=== PATIENT | male | born 1945 | race Two or more races ===

== ENCOUNTER → 2016-06-09 | Day surgery (SDC) | payer MEDICARE, MEDICAID ==
--- NOTE | 2016-06-08 10:13 | Pre-Procedure Note/Attestation ---
Pre-Procedure Note/Attestation Complete Prior to Procedure Planned Procedure: right Procedure Narrative: 1. CATARACT EXTRACTION WITH PHACO AND PC IOL IMPLANTATION, RIGHT EYE. 2.MALYUGIN RING INSERTION, RIGHT EYE FOR FLOPPY IRIS SYNDROME. 3.COMPLEX CATARACT , RIGHT EYE Indications for Procedure Pre-Operative Diagnosis: 1. CATARACT ,RIGHT EYE. 2. FLOPPY IRIS SYNDROME, RIGHT EYE 3. COMPLEX CATARACT , RIGHT EYE. Attestation I attest that I discussed the nature of the procedure; its benefits; risks and complications; and alternatives (and the risks and benefits of such alternatives ), prior to the procedure, with the patient (or the patient's legal sales representative facility services). I attest that, if there was a reasonable possibility of needing a blood transfusion, the patient (or the patient's legal sales representative facility services) was given the [facility] standardized written summary, pursuant to the Alex Woodfin Blood Safety Act ([place] Health and Safety Code # 1645, as amended). I attest that I re-evaluated the patient just prior to the surgery and that there has been no change in the patient's H&P, except as documented below: JOSIE JARQUIN Jun 08, 2016 10:13
[2016-06-09] VITALS (9 sets, daily range): BP systolic 137–155; BP diastolic 72–85
[~2016-06-09] VITALS: Ht 188 cm; Wt 81.6 kg
[~2016-06-09] MED LIST: Akten 3.5% 1ml Btl ONE; BSS 15ml BTL ONE; BSS 500ml btl ONE; Dexamethasone 4mg/ml vial ONE; Diclofenac Sod 0.1% Op Soln ONE; DiphenhydrAMINE 50mg/ml Inj IVP PRN; DiphenhydrAMINE 50mg/ml Inj ONE; EPINEPHrine 1mg/1ml Amp ONE; FLUTICASONE PRO16 G1 NASAL; FOLIC ACID1 MG ORAL; GABAPENTIN600 MG ORAL; Gatifloxacin Opth Solution 0.5% ONE; LR 1000ml 1,000 ML IVLG SCH; LR 1000ml ONE; Labetalol 5mg/ml 20ml vial IV PRN; Lidocaine 1% MPF 10mg/ml 5ml ONE; NS Irrig 1000ml ONE; Phenylephrine 10% Opth Soln 5ml ONE; Povidone-Iodine 5% opth solution ONE; Sodium Hyaluronate 10 mg/ml 0.85ml ONE; Sterile Water Irrig 1000ml IRRIG ONE; TAMSULOSIN HCL0.4 MG ORAL; Tropicamide 1% Opth Soln ONE; acetaZOLAMIDE 125mg tab ORAL ONE; fentaNYL 100 mcg/2 mL IV ONE
--- NOTE | 2016-06-09 07:36 | Anethesia Preoperative Eval ---
Anesthesia Pre-op PMH/ROS General Date of Evaluation: Jun 09, 2016 Anesthesiologist: Demetri ASA Score: ASA 3 Mallampati Score Class I : Soft palate, uvula, fauces, pillars visible Class II: Soft palate, uvula, fauces visible Class III: Soft palate, base of uvula visible Class IV: Only hard plate visible Mallampati Classification: Class II Surgeon: Isabelle Diagnosis: Right cataract Surgical Procedure: Right cataract extraction with IOL Anesthesia History: none Family History: no anesthesia problems Allergies: Coded Allergies: No Known Allergies (Unverified , 06/05/16) Medications: see eMAR Past Medical History Cardiovascular: Reports: HTN, Denies: CAD, [place], arrhythmia, other, valve dz Pulmonary: Denies: COPD, CRISTIAN, asthma, other Gastrointestinal/Genitourinary: Reports: GERD, other - BPH, Denies: CRI, ESRD Neurologic/Psychiatric: Reports: depression/anxiety, Denies: CVA, TIA, dementia, other Endocrine: Denies: DM, hypothyroidism, other, steroids HEENT: Denies: [place] (L), [place] (R), cataract (L), cataract (R), glaucoma, other Hematology/Immune: Denies: DVT, anemia, bleeding disorder, other Musculoskeletal/Integumentary: Reports: other - Multiple sclerosis, Denies: DDD, DJD, OA, RA, edema PSxH Narrative: Denies Anesthesia Pre-op Phys. Exam Physician Exam see chart Constitutional: NAD Cardiovascular: RRR Respiratory: CTA Airway Exam Mallampati Score: Class II MO: full ROM: full Anesthesia Pre-op A/P Labs see chart Studies Pre-op Studies: EKG - sr Risk Assessment & Plan Assessment: ASa III Plan: MAC Status Change Before Surgery: No Pre-Antibiotics Drug: N/A JENNIFER RIVAS M.D. Jun 09, 2016 07:36
--- NOTE | 2016-06-09 08:32 | Immediate Post-Op Evaluation ---
Immediate Post-Op Evalulation Immediate Post-Op Evalulation Procedure: Right cataract extraction with IOl Date of Evaluation: Jun 09, 2016 Time of Evaluation: 10:17 IV Fluids: 400 Blood Products: 0 Estimated Blood Loss: 0 Urinary Output: 0 Blood Pressure Systolic: 155 Blood Pressure Diastolic: 85 Pulse Rate: 79 Respiratory Rate: 16 O2 Sat by Pulse Oximetry: 100 Temperature (Fahrenheit): 97.3 Pain Score (1-10): 0 Nausea: No Vomiting: No Complications 0 Patient Status: awake, reacts, patent, none Hydration Status: adequate Drug: N/A JENNIFER RIVAS M.D. Jun 09, 2016 08:32
--- NOTE | 2016-06-09 08:32 | 48 Hour Post Anesthesia Eval ---
Post Anesthesia Evaluation Procedure: Right cataract extraction with IOl Date of Evaluation: Jun 09, 2016 Blood Pressure Systolic: 149 0: 81 Pulse Rate: 78 Respiratory Rate: 16 O2 Sat by Pulse Oximetry: 99 Airway: patent Nausea: No Vomiting: No Pain Intensity: 0 Hydration Status: adequate Cardiopulmonary Status: at baseline Mental Status/LOC: patient returned to baseline Post-Anesthesia Complications: 0 Follow-up care needed: ready to discharge JENNIFER RIVAS M.D. Jun 09, 2016 08:32
[2016-06-09] MEDS: Phenylephrine 10% Opth Soln 5ml RIGHT EYE SCH ×3 (08:53→09:06)
[2016-06-09] MEDS: Tropicamide 1% Opth Soln RIGHT EYE SCH ×3 (08:53→09:05)
[2016-06-09] MEDS: Gatifloxacin Opth Solution 0.5% RIGHT EYE SCH ×3 (08:54→09:06)
[2016-06-09] MEDS: Diclofenac Sod 0.1% Op Soln RIGHT EYE SCH ×3 (08:55→09:06)
[2016-06-09] MEDS: Akten 3.5% 1ml Btl RIGHT EYE SCH ×3 (08:55→09:07)
--- NOTE | 2016-06-09 10:15 | Brief Operative Note ---
Immediate Post Operative Note Operative Note Chief Complaint: blurry visio, right eye, difficulty watching TV and reading Pre-op Diagnosis: 1. CATARACT ,RIGHT EYE. 2. FLOPPY IRIS SYNDROME, RIGHT EYE 3. COMPLEX CATARACT , RIGHT EYE. Procedure: 1- Cataract extraction with phaco and PC IOL implantation, right eye 2- Malyugin ring insertion for treatment floppy iris syndrome 4- Complex cataract extracted Post-op Diagnosis: same as pre-op Surgeon: Josie Walton MD Metal Pickling Equipment Operator: None Additional Surgeons: None Anesthesiologist: Dr. Mosquera Anesthesia: MAC Specimen: none Complications: none Condition: stable Estimated Blood Loss: none Drains: none Implant(s) used?: Yes - Monopfocal PC IOL implanted in the right eye without complication JOSIE WALTON Jun 09, 2016 10:15
--- NOTE | 2016-06-09 15:58 | Discharge Summary ---
DATE OF ADMISSION: 06/09/2016 DATE OF DISCHARGE: 06/09/2016 REASON FOR HOSPITALIZATION: Cataract of the right eye. SURGERY PERFORMED: 1. Cataract extraction with phacoemulsification and posterior chamber intraocular lens implantation in the right eye. 2. Insertion of Malyugin ring for treatment of floppy iris syndrome. CONDITION IN THE HOSPITAL: The patient tolerated the surgery without complications. DISCHARGE CONDITION: The patient was stable at discharge. DISCHARGE MEDICATIONS: 1. Prednisolone 1% q.i.d. in the right eye. 2. Vigamox eyedrops one drop q.i.d. in the right eye. 3. Ilevro eye drops one drop daily in the right eye. POSTOPERATIVE ORDERS: The patient has to rest at home. No bending. No lifting. No watching TV tonight. Postoperative Followup: The patient will be followed in my office tomorrow morning at 06:30 a.m. tomorrow. Westley Walton M.D. DR: ERNESTINA JOB#: [id number] CC:
--- NOTE | 2016-06-09 15:58 | Operative Note - Dictated ---
DATE OF OPERATION: 06/09/2016 FACILITY: [facility] SURGEON: Westley Walton M.D. MENTAL HEALTH SPECIALIST: None. ANESTHESIOLOGIST: Dr. Mosquera. ANESTHESIA: Monitored anesthesia care (MAC). PREOPERATIVE DIAGNOSES: 1. Cataract of the right eye. 2. 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 3. Complex cataract, right eye. POSTOPERATIVE DIAGNOSES: 1. Cataract of the right eye. 2. 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 3. Complex cataract, right eye. SURGERY PERFORMED: 1. Cataract extraction with phacoemulsification and posterior chamber intraocular lens implantation in the right eye. 2. Malyugin ring insertion for treatment of floppy iris syndrome in the right eye. 3. Complex cataract treatment in the right eye. INDICATION FOR SURGERY: The patient is a 70-year-old gentleman with history of multiple sclerosis, paraparesis, bedridden, and is on wheelchair. He is complaining of blurry vision in the right eye. He has a history of diverticular disease of the colon, multiple sclerosis, chronic depression, paraparesis, urinary incontinence, anal fissure, and chronic constipation. He is taking Advair Diskus 250 mcg/50 mcg, dextromethorphan/guaifenesin 10 mg/100 mg syrup, Fleet Enema, fluticasone 50 mcg, folic acid 1 mg, Linzess 290 mcg capsule, tamsulosin 0.5 mg capsule, and Zithromax Z-Bhavin 250 mg. He is a smoker and as I mentioned, he is bedridden. He is complaining of blurred vision in the right eye. Upon examination of the right eye, the cornea is clear. Anterior chamber is clean and quiet. Pupillary reflex is normal. There is no RAPD. Actually, he had surgery of neuritis in both eyes about 20 years ago, but right now, the optic nerves are clear and clean. Upon examination, there is 4+ nuclear sclerosis and 2+ cortical cataract. Funduscopy shows normal macula, normal optic disc, and periphery retina is flat. To improve his vision in the right eye, the cataract has to be removed and posterior chamber intraocular lens has to be implanted. INFORMED CONSENT: The nature of the surgery, risks, benefits, alternatives, and potential complications were explained all in detail to the patient. The potential complications including, but not limited to bleeding, infection, posterior capsular rupture, lens subluxation, flat anterior chamber, iris prolapse, uveitis, corneal edema, macular edema, endophthalmitis, retinal detachment, loss of vision, and loss of the eye were all explained in detail to the patient. The patient voiced understanding and accepted all the complications. The alternatives including accommodating lens, multifocal lens, toric lens, and conventional cataract surgery with limbal relaxing incision for treatment of astigmatism were all explained in detail to the patient in his language, Farsi. The patient voiced understanding all my explanations. Then, the patient decided to have only conventional cataract surgery in the right eye. Then, he signed a consent form, which is in the chart. DESCRIPTION OF SURGERY AND FINDINGS: Following that, the patient was taken to the operation room in a stable condition. Lidocaine gel Akten 3.5% were applied to the conjunctiva of the right eye. IV sedation was given by the anesthesiologist, Dr. Mosquera. After adequate anesthesia and sedation had been achieved, the right eye was prepped and draped in a sterile fashion for intraocular surgery. Following that, a speculum was placed in the right eye. Following that, using a Super Sharp knife, a clear corneal side port was created. Lidocaine 1% without preservative (MPF) was injected into the anterior chamber. Viscoelastic agent Healon was injected into the anterior chamber. Following that, a clear corneal temporal keratotomy was performed with a 2.8 mm keratome. Following that, viscoelastic agent Healon was injected into the anterior chamber again. Following that, a Malyugin ring was injected into the anterior chamber. Following that, the coil of the Malyugin ring was engaged with a sphincter of the pupil. A bill-shaped space was created for safe capsulorrhexis and safe phacoemulsification. Following that, vision blue was injected under the viscoelastic agent to stain the anterior chamber. Under the viscoelastic agent, anterior capsulotomy was performed in the fashion of capsulorrhexis beautifully. Following that, all viscoelastic agent was removed from the anterior chamber. Following that, with balanced salt solution, hydrodissection and hydrodelineation were performed and the nucleus was freed. Following that, a clear fresh viscoelastic agent was injected into the anterior chamber to protect the endothelium of the cornea. Following that, using phacoemulsification machine in the fashion of horizontal chop, the nucleus was removed in toto. Following that, the cortical material was removed from the capsular bag using irrigation aspiration unit. Following that, the capsular bag was polished. Following that, the capsular bag was filled with viscoelastic agent Healon. Following that, a +20 diopter foldable PCIOL [id number] with serial #[id number] was inserted into the capsular bag. Using a Sinskey hook, the lens was manipulated and put in the proper position. Following that, the viscoelastic was removed from the anterior posterior part of the lens and the anterior chamber was filled with balanced salt solution. The wound was hydrated with balanced salt solution. The wound was checked for leakage and there was no leakage. Vigamox eye drops were applied to the conjunctiva of the right eye. The patient tolerated the surgery without complications. At the end of the surgery, the eye was patched with a clear sterile fenestrated shield. Following that, the patient was transferred to the recovery room. In the recovery room, 125 mg Diamox was given by mouth stat. Postoperative orders and directions were given to the patient. The patient will be discharged home upon stabilization. The patient will be followed in my office tomorrow morning at 6:30 a.m. Westley Walton M.D. DR: ERNESTINA JOB#: [id number] CC:
== END | disposition home or self-care (01) ==
LOC: SUR 07:55
DX: H25.11 Age-related nuclear cataract, right eye (principal); H25.011 Cortical age-related cataract, right eye; H21.81 Floppy iris syndrome; G35 Multiple sclerosis; G82.20 Paraplegia, unspecified; R26.2 Difficulty in walking, not elsewhere classified; N31.9 Neuromuscular dysfunction of bladder, unspecified; I10 Essential (primary) hypertension; K21.9 Gastro-esophageal reflux disease without esophagitis; N40.1 Benign prostatic hyperplasia with lower urinary tract symptoms; R33.8 Other retention of urine; F32.9 Major depressive disorder, single episode, unspecified; F41.9 Anxiety disorder, unspecified; K59.00 Constipation, unspecified; K60.2 Anal fissure, unspecified; K57.30 Diverticulosis of large intestine without perforation or abscess without bleeding; F17.210 Nicotine dependence, cigarettes, uncomplicated; J32.9 Chronic sinusitis, unspecified; Z99.3 Dependence on wheelchair
CPT/HCPCS: 66982; J0171; J1100; J1200; J3010; J7120; V2632; 94003; 94150

== ENCOUNTER → 2016-06-23 | Day surgery (SDC) | payer MEDICAID, MEDICARE ==
--- NOTE | 2016-06-19 16:17 | Pre-Procedure Note/Attestation ---
Pre-Procedure Note/Attestation Complete Prior to Procedure Planned Procedure: left Procedure Narrative: 1. CATARACT EXTRACTION WITH PHACO AND PC IOL IMPLANTATION, LEFT EYE. 2.MALYUGIN RING INSERTION, LEFT EYE FOR FLOPPY IRIS SYNDROME. 3.COMPLEX CATARACT , LEFT EYE Indications for Procedure Pre-Operative Diagnosis: 1. CATARACT ,LEFT EYE. 2. FLOPPY IRIS SYNDROME, LEFT EYE 3. COMPLEX CATARACT , LEFT EYE. Attestation I attest that I discussed the nature of the procedure; its benefits; risks and complications; and alternatives (and the risks and benefits of such alternatives ), prior to the procedure, with the patient (or the patient's legal customer retention representative). I attest that, if there was a reasonable possibility of needing a blood transfusion, the patient (or the patient's legal customer retention representative) was given the [facility] standardized written summary, pursuant to the Alex Reza Blood Safety Act ([place] Health and Safety Code # 1645, as amended). I attest that I re-evaluated the patient just prior to the surgery and that there has been no change in the patient's H&P, except as documented below: JOSIE JARQUIN Jun 19, 2016 16:17
[2016-06-23] VITALS (8 sets, daily range): BP systolic 140–164; BP diastolic 78–96
[~2016-06-23] VITALS: Ht 188 cm; Wt 79.4 kg
[~2016-06-23] MED LIST changes: +Akten 3.5% 1ml Btl LEFT EYE SCH; +Diclofenac Sod 0.1% Op Soln LEFT EYE SCH; -DiphenhydrAMINE 50mg/ml Inj IVP PRN; -DiphenhydrAMINE 50mg/ml Inj ONE; +Gatifloxacin Opth Solution 0.5% LEFT EYE SCH; +Phenylephrine 10% Opth Soln 5ml LEFT EYE SCH; +Tropicamide 1% Opth Soln LEFT EYE SCH
[2016-06-23 08:31] LABS: BASOPHILS % (AUTO) 0.9 % (0.0-2.0); EOSINOPHILS % (AUTO) 1.8 % (0.0-3.0); LYMPHOCYTES % (AUTO) 13.1 % (20.0-45.0); MEAN CORPUSCULAR HEMOGLOBIN 19.3 PG (27.0-31.0); MEAN CORPUSCULAR HGB CONC 30.1 G/DL (32.0-36.0); MEAN CORPUSCULAR VOLUME 64 FL (80-99); MEAN PLATELET VOLUME 9.1 FL (6.5-10.1); NEUTROPHILS % (AUTO) 77.3 % (45.0-75.0); PLATELET COUNT 190 K/UL (150-450); RED BLOOD COUNT 6.52 M/UL (4.70-6.10); RED CELL DISTRIBUTION WIDTH 13.7 % (11.6-14.8); WHITE BLOOD COUNT 9.5 K/UL (4.8-10.8)
[2016-06-23 08:44] LABS: ANION GAP 16 (5-15); CALCIUM 9.9 mg/dL (8.6-10.2); CARBON DIOXIDE 24 mEQ/L (20-30); CHLORIDE 97 mEQ/L (98-107); CREATININE 1.1 mg/dL (0.7-1.2); GLOMERULAR FILTRATION RATE > 60 mL/min (>60); HEMOLYSIS 66; POTASSIUM 4.7 mEQ/L (3.4-4.9); SODIUM 137 mEQ/L (135-145)
--- NOTE | 2016-06-23 08:53 | Immediate Post-Op Evaluation ---
Immediate Post-Op Evalulation Immediate Post-Op Evalulation Procedure: Left cataract extraction with IOL Date of Evaluation: Jun 23, 2016 Time of Evaluation: 09:58 IV Fluids: 400 Blood Products: 0 Estimated Blood Loss: 0 Urinary Output: 0 Blood Pressure Systolic: 163 Blood Pressure Diastolic: 91 Pulse Rate: 79 Respiratory Rate: 13 O2 Sat by Pulse Oximetry: 98 Temperature (Fahrenheit): 98.5 Pain Score (1-10): 0 Nausea: No Vomiting: No Complications 0 Patient Status: awake, reacts, patent, none Hydration Status: adequate Drug: N/A JENNIFER RIVAS M.D. Jun 23, 2016 08:53
--- NOTE | 2016-06-23 08:53 | Anethesia Preoperative Eval ---
Anesthesia Pre-op PMH/ROS General Date of Evaluation: Jun 23, 2016 Anesthesiologist: Demetri ASA Score: ASA 3 Mallampati Score Class I : Soft palate, uvula, fauces, pillars visible Class II: Soft palate, uvula, fauces visible Class III: Soft palate, base of uvula visible Class IV: Only hard plate visible Mallampati Classification: Class II Surgeon: Alexandro Diagnosis: Left cataract Surgical Procedure: Left cataract extraction with IOL Anesthesia History: none Family History: no anesthesia problems Allergies: Coded Allergies: No Known Allergies (Unverified , 06/05/16) Medications: see eMAR Past Medical History Cardiovascular: Reports: HTN, Denies: CAD, [place], arrhythmia, other, valve dz Pulmonary: Denies: COPD, CRISTIAN, asthma, other Gastrointestinal/Genitourinary: Reports: GERD, other - BPH, Denies: CRI, ESRD Neurologic/Psychiatric: Reports: depression/anxiety, other - Multiple sclerosis , Denies: CVA, TIA, dementia Endocrine: Denies: DM, hypothyroidism, other, steroids HEENT: Denies: [place] (L), [place] (R), cataract (L), cataract (R), glaucoma, other Hematology/Immune: Denies: DVT, anemia, bleeding disorder, other Musculoskeletal/Integumentary: Denies: DDD, DJD, OA, RA, edema, other PSxH Narrative: Right cataract sx Anesthesia Pre-op Phys. Exam Physician Exam Last Vital Signs Date Time Temp Pulse Resp B/P Pulse Ox O2 Delivery O2 Flow Rate FiO2 06/23/16 08:35 98.3 76 16 164/96 96 Room Air Constitutional: NAD Cardiovascular: RRR Respiratory: CTA Airway Exam Mallampati Score: Class II Anesthesia Pre-op A/P Labs Hematology Test 06/23/16 08:10 White Blood Count 9.5 K/UL (4.8-10.8) Red Blood Count 6.52 M/UL (4.70-6.10) H Hemoglobin 12.6 G/DL (14.2-18.0) L Hematocrit 41.9 % (42.0-52.0) L Mean Corpuscular Volume 64 FL (80-99) L Mean Corpuscular Hemoglobin 19.3 PG (27.0-31.0) L Mean Corpuscular Hemoglobin Concent 30.1 G/DL (32.0-36.0) L Red Cell Distribution Width 13.7 % (11.6-14.8) Platelet Count 190 K/UL (150-450) Mean Platelet Volume 9.1 FL (6.5-10.1) Neutrophils (%) (Auto) 77.3 % (45.0-75.0) H Lymphocytes (%) (Auto) 13.1 % (20.0-45.0) L Monocytes (%) (Auto) 7.0 % (1.0-10.0) Eosinophils (%) (Auto) 1.8 % (0.0-3.0) Basophils (%) (Auto) 0.9 % (0.0-2.0) Chemistry Test 06/23/16 08:10 Sodium Level 137 mEQ/L (135-145) Potassium Level 4.7 mEQ/L (3.4-4.9) Chloride Level 97 mEQ/L (98-107) L Carbon Dioxide Level 24 mEQ/L (20-30) Anion Gap 16 (5-15) H Blood Urea Nitrogen 12 mg/dL (7-23) Creatinine 1.1 mg/dL (0.7-1.2) Estimat Glomerular Filtration Rate > 60 mL/min (>60) Glucose Level 106 mg/dL (74-106) Calcium Level 9.9 mg/dL (8.6-10.2) Studies Pre-op Studies: EKG - sr Risk Assessment & Plan Assessment: ASA II Plan: MAC Status Change Before Surgery: No Pre-Antibiotics Drug: N/A JENNIFER RIVAS M.D. Jun 23, 2016 08:53
--- NOTE | 2016-06-23 08:54 | 48 Hour Post Anesthesia Eval ---
Post Anesthesia Evaluation Procedure: Left cataract extraction with IOL Date of Evaluation: Jun 23, 2016 Blood Pressure Systolic: 153 0: 94 Pulse Rate: 81 Respiratory Rate: 15 O2 Sat by Pulse Oximetry: 99 Airway: patent Nausea: No Vomiting: No Pain Intensity: 0 Hydration Status: adequate Cardiopulmonary Status: at baseline Mental Status/LOC: patient returned to baseline Post-Anesthesia Complications: 0 Follow-up care needed: ready to discharge JENNIFER RIVAS M.D. Jun 23, 2016 08:54
--- NOTE | 2016-06-23 09:57 | Brief Operative Note ---
Immediate Post Operative Note Operative Note Chief Complaint: Blurry vision, left eye, difficulty reading and watchingv TV Pre-op Diagnosis: 1. CATARACT ,LEFT EYE. 2. FLOPPY IRIS SYNDROME, LEFT EYE 3. COMPLEX CATARACT , LEFT EYE. Procedure: 1- Cataract extraction with phaco and PC IOL implantation, left eye 2- Malyugin ring insertion for the treatment of floppy iris syndrome 3- Complex catataract removed Post-op Diagnosis: same as pre-op Surgeon: Josie Walton MD Floor Broker: None Additional Surgeons: None Anesthesiologist: Dr. Mosquera Anesthesia: MAC Specimen: none Complications: none Condition: stable Estimated Blood Loss: none Drains: none Implant(s) used?: Yes - Monofocal PC IOL implanted in the left eye without complication JOSIE WALTON Jun 23, 2016 09:56
--- NOTE | 2016-06-23 21:58 | Pre-op HX & Phy Repo 2 SIG ---
DATE OF ADMISSION: 06/23/2016 PRESURGICAL INTERNAL MEDICINE HISTORY AND PHYSICAL: REASON FOR EVALUATION: I was asked by Dr. Westley Walton to see this 70-year-old male who is going for elective surgery on the left eye. The patient has a cataract of left eye. Please see Ophthalmology History and Physical by Dr. Westley Walton. The patient was examined. Chart was reviewed. PAST MEDICAL HISTORY/REVIEW OF SYSTEMS: Remarkable for multiple sclerosis, benign prostatic hypertrophy, hypertension untreated, and anemia. No history of stroke or seizures. No history of thyroid problem or diabetes. No history of renal failure. No stroke. No history of thyroid problem. History of benign prostatic hypertrophy. FAMILY HISTORY: Cancer in both parents. PAST SURGICAL HISTORY: Right eye cataract recently. ALLERGIES: Not known. MEDICATIONS: Current medications include trazodone, folic acid, and Neurontin. HABITS: The patient smoked for more than 30 years and stopped four months ago. Denied alcohol or street drug use. PHYSICAL EXAMINATION: GENERAL: Alert, well-developed, well-nourished male in his 70s, in no acute distress. VITAL SIGNS: Blood pressure 164/96, temperature 98.3, pulse 76 and regular, and O2 saturation 96% on room air. SKIN: . No rashes. Dry and warm. No diaphoresis or cyanosis. LYMPH NODES: Not enlarged. HEENT: Ears, clear. Eyes, full description per Dr. Westley Walton. Mouth, clear and moist. No dentures. NECK: Supple. No palpable mass. Trachea midline. CHEST: No deformity or asymmetry. LUNGS: Clear. No rales or rhonchi. HEART: Sinus rhythm. No ectopy. No murmur. No S3 or S4. ABDOMEN: Soft and benign. Liver and spleen not enlarged. No rebound. Abdomen is soft and benign. No palpable mass. EXTREMITIES: No edema or calf tenderness. NEUROLOGIC SYSTEM: Multiple sclerosis. GENITOURINARY: CVA nontender. History of benign prostatic hypertrophy. LAB DATA: ECG, sinus. Lab work, anemia. . IMPRESSION: 1. Cataract, left eye. 2. Multiple sclerosis. 3. Hypertension, untreated. 4. Benign prostatic hypertrophy. 5. History of anemia. PLAN: Cataract extraction, left eye with intraocular lens implant per Dr. Westley Walton. Conclusion, the patient's blood pressure elevated, he does not take any medication for blood pressure admission and the patient did not eat from last night. The patient's condition optimized for surgery. Thank you very much, Dr. Walton, for privilege to participate in the presurgical care of this interesting patient. Marjorie Juan M.D. DR: NORBERTO JOB#: [id number] CC:
--- NOTE | 2016-06-24 04:31 | Operative Note - PDOC ---
Operative Note Operative Note Operative Report DATE OF OPERATION:06/23/2016 FACILITY: [facility] SURGEON: Westley Walton MD. OPTOMECHANICAL TECHNICIAN: None ANESTHESIOLOGIST: Dr. Mosquera ANESTHESIA: Monitored anesthesia care (MAC) PREOPERATIVE DIAGNOSES: 1. Cataract, left eye. 2. Floppy iris syndrome, left eye. 3- Complex cataract, left eye POSTOPERATIVE DIAGNOSES: 1. Cataract, left eye. 2. Floppy iris syndrome, left eye. 3. Complex cataract, left eye. SURGERY PERFORMED: 1. Cataract extraction with phacoemulsification and posteriro chamber intraocular lens implantation in the left eye. 2. Malyugin ring insertion for treatment of floppy syndrome, eft eye. 3. Complex cataract treatment in the left eye. INDICATION FOR SURGERY: The patient is an 70- year-old gentleman with history of Multiple sclerosis, paraparesis, bedridden, and is on wheelchair. He has history of diverticulosis and multiple sclerosis, chronic depression,urinary incontinance, fissure, and chronic constipation. He is taking Advir Diskus for mcg/50mcg, dextromethorphan/guaiafenesin 10 mg/100mg syrop, fleet enema, fluticasone 50 mcg, folic acid 1 mg, linzess 290 mcg capsule, tamsulosin 0.5 mg capsule, for BPH. He is smoker and sometimes drinks wine. He has no allergy to medications. He is complaining of blurry vision in the left eye. On examination of the Left eye., the cornea is clear. ANterior chamber is clean and quiet, but is shallow. The pupillary reflex is normal. There is no RAPD. There is 4 nuclear sclerosis and 2 cortical cataract. The fundus shows normal optic disc, normal macula, and periphery retina is flat. To improve his vision int he left eye, the cataract has to be removed and posterior chamber intraocular lens has to be implanted. INFORMED CONSENT: The nature of the surgery, risks benefits, alternatives, and potential complications were explained all in detail to the patient. The potential complications including. But not limited to bleeding, infection, posterior capsular rupture,lens subluxation, flat anterior chamber,iris prolapse , uveitis, corneal edema, macular edema, endophthalmitis, retinal detachment, loss of vision and even loss of the eye were all explained in detail to the patient. The patient voiced understanding and accepted all the complications.The alternatives including accommodating lens, multifocal lens, toric lens, and conventional cataract surgery with limbal relaxing incision (LRI ) for treatment of astigmatism were all explained in detail to the patient who voiced understanding. The patient elected to have cataract surgery with insertion of the multifocal lens and limbal relaxing incision for astigmatism. Then, he signed the consent from,which is in the chart. DESCRIPTION OF SURGERY AND FINDINGS: Following hat, the patient was taken to the operation room in a stable condition. Lidocaine gel Akten 3.5% were applied to the conjuctiva of the left eye. Anesthesia was given by the anesthesiologist , Dr. Mosquera. After adequate anesthesia and sedation had been achieved, the left eye was prepped and draped in the usual and sterile fashion for intraocular surgery.Following that, a speculum was placed in the left eye. Following that, before the patient was taken to the operation room, the 180 and 90 meridian of the cornea was marked. In the operation room, using a corneal marker and marking pen, the steep meridian of the cornea was marked. Following that, using a bill knife, two parallel incisions was placed on the steep meridian of the cornea to treat the patients astigmatism. Following that, using a super sharp knife, a clear corneal side port was created. Following that 1% lidocaine without preservative (MPF) was injected into the anterior chamber.Viscoelastic agent Healon was injected into the anterior chamber. Following that, a clear corneal temporal keratotomy was performed with a 2.8 mm keratome. Following that, viscoelastic agent was injected into the anterior chamber again. Following that, a clear fresh viscoelastic agent was injected into the anterior chamber again. Under the viscoelastic agent, an anterior capsulotomy was performed in the fashion of capsulorrhexis beautifully. Following that viscoelastic agent was removed from the anterior chamber. Following that, using a balanced salt solution hydrodissection and hydrodelineation was performed and the nucleus was freed. Following that, the viscoelastic agent was injected into the anterior chamber again to protect the endothelium of the cornea. Following that, using phacoemulsification machine inthe fashion of horizontal chop, the nucleus was removed in toto. Following that, the cortical material was removed from the capsular bag with irrigation aspiration unit and the capsular bag was polished.Following that, the capsular bag was filled with viscoelastic agent. Following that, a+18.0 18 diopter , ZCB00 foldable PCIOL was injected into the capsular bag. Using a Sinskey hook, the lens was manipulated within the proper position.Following that, viscoelastic agent was removed from the anterior and posterior part of the lens.The anterior chamber was filled with balanced salt solution. Following that , the wound was hydrated with balanced salt solution and the wound was checked for leakage. There was no leakage. Following that, the wound was hydrated and the wound was checked for leakage. There was no leakage. Following that, Vigamox eye drops were applied to the conjuctiva of the left eye. The patient tolerated the surgery without complications. At the end of the surgery, the eye was patched with a clear sterile fenestrated shield. Following that, the patient was transferred to the recovery room. In the recovery room, 125mg Diamox was given by mouth stat. Postoperative orders and directions were given to the patient. The patient will be discharged home upon stabilization. The patient will be followed in my office tomorrow morning at 7 o 'clock. MD MILKA Longoria JOHN Jun 24, 2016 04:31
--- NOTE | 2016-06-30 16:33 | Discharge Summary ---
Discharge Summary Discharge Summary Discharge Summary DATE OF ADMISSION:06/23/2016 DATE OF DISCHARGE:06/23/2016 REASON FOR HOSPITALIZATION:Cataract , left eye SURGERY PERFORMED: 1-Cataract extraction with phaco and PC IOL implantation, left eye. 2- Malyugin ring insertion for floppy iris syndrome. 3- Complex cataract extraction CONDITION IN THE HOSPITAL:The patient tolerated the surgery without complications. DISCHARGE CONDITION: The patient was stable at discharge. DISCHARGE MEDICATIONS: 1. Vigamox eye drops one drop q.i.d, 2. Prednisolone one drop q.i.d, 3. Ilevro eye drop, one drop q.d. POSTOPERATIVE ORDERS: The patient has to rest at home. No bending, No lifting, No watching Television tonight. POSTOPERATIVE FOLLOW UP: The patient will be followed in my office tomorrow morning at 7 o'clock. JOSIE JARQUIN Jun 30, 2016 16:33
== END | disposition home or self-care (01) ==
LOC: SUR 07:54
DX: H25.12 Age-related nuclear cataract, left eye (principal); H25.012 Cortical age-related cataract, left eye; H21.81 Floppy iris syndrome; G35 Multiple sclerosis; G82.20 Paraplegia, unspecified; N40.0 Benign prostatic hyperplasia without lower urinary tract symptoms; I10 Essential (primary) hypertension; R32 Unspecified urinary incontinence; K59.09 Other constipation; J45.909 Unspecified asthma, uncomplicated; K21.9 Gastro-esophageal reflux disease without esophagitis; F32.9 Major depressive disorder, single episode, unspecified; F41.9 Anxiety disorder, unspecified; Z87.891 Personal history of nicotine dependence
CPT/HCPCS: 36415; 66984; 80048; 85025; J0171; J1100; J3010; J7120; V2632; 94003; 94150